=== PATIENT | female | born 1950 | race Caucasian/White ===

== ENCOUNTER 2019-05-12 11:07 | Day surgery (SDC) | payer MEDICARE, OTHER ==
[~2019-05-12] VITALS: Ht 175.3 cm; Wt 85.5 kg
[~2019-05-12 11:07] MED LIST: ASPI81CH PO; ATOR80 PO; ATORVASTATIN CA80 MG PO; Calcium +D & M1 EACH PO; Cyclobenzaprine5 MG PO; LISHYD2012 PO; METF500 PO; Multiple Vitam1 EACH PO; OMEP20ER; SERT100 PO; VITAMIN D34000 UNIT PO
== END 2019-05-12 14:15 | disposition home or self-care (01) ==
LOC: ORSCSDS 11:07
PROVIDERS: Internal Medicine Gastroenterology
PROC: 0DBP8ZX Excision of Rectum, Via Natural or Artificial Opening Endoscopic, Diagnostic (ICD-10-PCS; principal; 2019-05-12 12:30)
PROC: 0DBH8ZX Excision of Cecum, Via Natural or Artificial Opening Endoscopic, Diagnostic (ICD-10-PCS; principal; 2019-05-12 12:30)
DX: Z12.11 Encounter for screening for malignant neoplasm of colon (principal); Z86.010 Personal history of colon polyps; D12.0 Benign neoplasm of cecum; K62.1 Rectal polyp; I10 Essential (primary) hypertension; K64.8 Other hemorrhoids; E78.00 Pure hypercholesterolemia, unspecified; Z80.0 Family history of malignant neoplasm of digestive organs; Z87.891 Personal history of nicotine dependence; Z79.82 Long term (current) use of aspirin; Z79.899 Other long term (current) drug therapy
CPT/HCPCS: 88305; J2704; J7120

== ENCOUNTER → 2023-09-05 | Outpatient (CLI) | payer MEDICARE, OTHER ==
[2023-09-05 12:31] LABS: BASOPHILS ABSOLUTE AUTO 0.05 K/mm3 (0.00-0.23); BASOPHILS PERCENT AUTO 1 % (0-2); EOSINOPHILS ABSOLUTE AUTO 0.08 K/mm3 (0.00-0.68); EOSINOPHILS PERCENT AUTO 1 % (0-6); Hematocrit 42.2 % (33.0-51.0); Hemoglobin 14.5 g/dL (11.5-16.0); IMMATURE GRAN ABSOLUTE AUTO 0.03 K/mm3 (0.00-0.10); IMMATURE GRAN PERCENT AUTO 0 % (0-1); LYMPHOCYTES ABSOLUTE AUTO 3.59 K/mm3 (0.84-5.20); LYMPHOCYTES PERCENT AUTO 40 % (21-46); MONOCYTES ABSOLUTE AUTO 0.64 K/mm3 (0.16-1.47); MONOCYTES PERCENT AUTO 7 % (4-13); Mean Corpuscular HGB 30.1 pg (26.0-34.0); Mean Corpuscular HGB Conc 34.4 g/dL (31.5-36.5); Mean Corpuscular Volume 88 fL (80-100); Mean Platelet Volume 10.7 fL (9.1-12.4); NEUTROPHILS PERCENT AUTO 52 % (41-73); Platelet Count 337 K/mm3 (150-400); RDW Coefficient Variation 12.7 % (11.7-14.2); RDW Standard Deviation 40.3 fL (35.1-46.3); Red Blood Cell Count 4.81 M/mm3 (3.80-5.20); White Blood Cell Count 9.09 K/mm3 (4.00-11.30)
[2023-09-05 12:50] LABS: Bun/Creatinine Ratio 15.6 (12.0-20.0); Creatinine, Blood 1.35 mg/dL (0.40-1.00); Potassium, Blood 3.4 mmol/L (3.5-5.5); Thyroid Stimulating Hormone 1.611 uIU/mL (0.360-4.800)
== END | disposition home or self-care (01) ==
LOC: LAB 12:25 → LAB SHORT 12:25
PROVIDERS: Physician Assistant Surgical
DX: R53.83 Other fatigue (principal); R00.2 Palpitations; R06.00 Dyspnea, unspecified
CPT/HCPCS: 80048; 84443; 84484; 85025; 85379

== ENCOUNTER 2024-05-24 08:25 | Day surgery (SDC) | payer MEDICARE, OTHER ==
[~2024-05-24] VITALS: Ht 175.3 cm; Wt 82.9 kg
[~2024-05-24 08:25] MED LIST changes: +Lactated Ringer's 1,000 ML IV ONE; +Lovastatin20 MG; +METF500; +NEBI10 PO; +SERT100; +propofoL 50 ML IV ONE
[2024-05-24] MEDS ORDERED: Lactated Ringer's 1,000 ML IV ONE (09:15)
[2024-05-24 10:40] VITALS: BP 104/66
== END 2024-05-24 10:43 | disposition home or self-care (01) ==
LOC: ORSCSDS 08:25
PROVIDERS: Internal Medicine Gastroenterology
PROC: 0DBP8ZX Excision of Rectum, Via Natural or Artificial Opening Endoscopic, Diagnostic (ICD-10-PCS; principal; 2024-05-24 09:30)
DX: Z12.11 Encounter for screening for malignant neoplasm of colon (principal); Z86.0100 Personal history of colon polyps, unspecified; Z80.0 Family history of malignant neoplasm of digestive organs; I10 Essential (primary) hypertension; E78.5 Hyperlipidemia, unspecified; K58.9 Irritable bowel syndrome, unspecified; E78.00 Pure hypercholesterolemia, unspecified; K21.9 Gastro-esophageal reflux disease without esophagitis; E11.9 Type 2 diabetes mellitus without complications; Z87.891 Personal history of nicotine dependence; E66.9 Obesity, unspecified; Z68.30 Body mass index [BMI] 30.0-30.9, adult; Z79.82 Long term (current) use of aspirin; Z79.84 Long term (current) use of oral hypoglycemic drugs; Z79.899 Other long term (current) drug therapy
CPT/HCPCS: 82947; 88305; J2704; J7120

== ENCOUNTER 2024-10-28 01:56 | Observation (INO) | payer MEDICARE, OTHER ==
[~2024-10-28] VITALS: Ht 172.7 cm; Wt 85.9 kg
[~2024-10-28 01:56] MED LIST changes: -LISHYD2012 PO; -Lactated Ringer's 1,000 ML IV ONE; -METF500; +ZESTORETIC 20-1 EAC2 PO; -propofoL 50 ML IV ONE
[2024-10-28 02:23] LABS: BASOPHILS ABSOLUTE AUTO 0.06 K/mm3 (0.00-0.23); BASOPHILS PERCENT AUTO 0 % (0-2); EOSINOPHILS ABSOLUTE AUTO 0.19 K/mm3 (0.00-0.68); EOSINOPHILS PERCENT AUTO 1 % (0-6); Hematocrit 42.3 % (33.0-51.0); Hemoglobin 14.5 g/dL (11.5-16.0); IMMATURE GRAN ABSOLUTE AUTO 0.06 K/mm3 (0.00-0.10); IMMATURE GRAN PERCENT AUTO 0 % (0-1); LYMPHOCYTES ABSOLUTE AUTO 4.57 K/mm3 (0.84-5.20); LYMPHOCYTES PERCENT AUTO 27 % (21-46); MONOCYTES ABSOLUTE AUTO 1.45 K/mm3 (0.16-1.47); MONOCYTES PERCENT AUTO 9 % (4-13); Mean Corpuscular HGB 30.2 pg (26.0-34.0); Mean Corpuscular HGB Conc 34.3 g/dL (31.5-36.5); Mean Corpuscular Volume 88 fL (80-100); Mean Platelet Volume 10.4 fL (9.1-12.4); NEUTROPHILS ABSOLUTE AUTO 10.32 K/mm3 (1.96-9.15); NEUTROPHILS PERCENT AUTO 62 % (41-73); Platelet Count 362 K/mm3 (150-400); RDW Coefficient Variation 12.6 % (11.7-14.2); RDW Standard Deviation 41.1 fL (35.1-46.3); White Blood Cell Count 16.65 K/mm3 (4.00-11.30)
[2024-10-28 04:28] LABS: Albumin, Blood 3.9 g/dL (3.4-5.0); Albumin/Globulin Ratio 1.1 (0.8-1.8); Bilirubin, Total 0.9 mg/dL (0.1-1.0); Calcium, Blood 9.6 mg/dL (8.5-10.1); Creatinine, Blood 1.05 mg/dL (0.40-1.00); Globulin, Blood 3.7 g/dL (2.2-4.0); Potassium, Blood 3.6 mmol/L (3.5-5.5); Total Protein, Blood 7.6 g/dL (6.4-8.2)
[2024-10-28] MEDS ORDERED: FentaNYL Citrate 50 MCG/ML 2 ML Injection IV PRN (05:10)
[2024-10-28] MEDS ORDERED: Nitroglycerin 0.4 MG SUBL SL PRN (05:10)
[2024-10-28] MEDS ORDERED: NS 1,000 ML IV SCH (05:10)
[2024-10-28] MEDS ORDERED: FLU VACC TS2024-25(6MOS UP)/PF 45 MCG/0.5 ML SYRINGE IM ONE (05:10)
[2024-10-28] MEDS ORDERED: Ondansetron HCl 2 MG / ML 2ML Vial IV PRN (05:10)
[2024-10-28] MEDS ORDERED: ADALAT CC PO (05:21)
[2024-10-28] MEDS ORDERED: ATORVASTATIN CA20 MG PO (05:22)
[2024-10-28 06:15] VITALS: BP 153/98
[2024-10-28] MEDS ORDERED: FAMO10 PO (06:38)
[2024-10-28 08:20] VITALS: BP 136/91
[2024-10-28] MEDS ORDERED: NIFEdipine 30 MG TabCR PO SCH (09:00)
[2024-10-28] MEDS ORDERED: Enoxaparin 40 MG/0.4 ML SYR SC SCH (09:00)
[2024-10-28] MEDS ORDERED: HydroCHLOROthiazide 25 mg Tab PO SCH (09:00)
[2024-10-28] MEDS ORDERED: Lisinopril 20 MG Tab PO SCH (09:00)
[2024-10-28] MEDS ORDERED: Omeprazole 20 MG CapCR PO SCH (09:00)
--- NOTE | 2024-10-28 15:06 | NUR ---
Pt. is awake in bed and welcomes my visit. Pt. is quite pleasant. Pt. verbalized that she is in the middle of a chemical stress test through the Pt. does not display any affect from the treatment thus far. Consdied matters of [place] and the community. Pt. verbalized that she had served with the [employer]. Prayed with the Pt. at an appropriate time. Pt. verbalized gratitude for the spiritual care visit.
[2024-10-28 16:29] VITALS: BP 126/81
--- NOTE | 2024-10-28 16:51 | NUR ---
PT HAD NO COFFEE OR FOOD TILL RESTING TEST TODAY AND WILL BE NO FOOD PAST MIDNIGHT FOR A MORNING STRESS TEST. PT HAS NO QUESTIONS OR CONCERNS AT THIS TIME.
[2024-10-28 19:25] VITALS: BP 127/92
[2024-10-29 00:04] VITALS: BP 122/78
[2024-10-29 04:11] VITALS: BP 122/82
[2024-10-29 05:21] LABS: BASOPHILS ABSOLUTE AUTO 0.04 K/mm3 (0.00-0.23); BASOPHILS PERCENT AUTO 1 % (0-2); EOSINOPHILS ABSOLUTE AUTO 0.36 K/mm3 (0.00-0.68); EOSINOPHILS PERCENT AUTO 4 % (0-6); Hematocrit 39.9 % (33.0-51.0); Hemoglobin 13.6 g/dL (11.5-16.0); IMMATURE GRAN ABSOLUTE AUTO 0.01 K/mm3 (0.00-0.10); IMMATURE GRAN PERCENT AUTO 0 % (0-1); LYMPHOCYTES ABSOLUTE AUTO 3.36 K/mm3 (0.84-5.20); LYMPHOCYTES PERCENT AUTO 41 % (21-46); MONOCYTES ABSOLUTE AUTO 0.88 K/mm3 (0.16-1.47); MONOCYTES PERCENT AUTO 11 % (4-13); Mean Corpuscular HGB 30.1 pg (26.0-34.0); Mean Corpuscular HGB Conc 34.1 g/dL (31.5-36.5); Mean Corpuscular Volume 88 fL (80-100); Mean Platelet Volume 10.6 fL (9.1-12.4); NEUTROPHILS ABSOLUTE AUTO 3.61 K/mm3 (1.96-9.15); NEUTROPHILS PERCENT AUTO 44 % (41-73); Platelet Count 317 K/mm3 (150-400); RDW Coefficient Variation 12.9 % (11.7-14.2); RDW Standard Deviation 41.8 fL (35.1-46.3); Red Blood Cell Count 4.52 M/mm3 (3.80-5.20); White Blood Cell Count 8.26 K/mm3 (4.00-11.30)
[2024-10-29 05:42] LABS: Albumin, Blood 3.4 g/dL (3.4-5.0); Bilirubin, Total 0.8 mg/dL (0.1-1.0); Bun/Creatinine Ratio 22.5 (12.0-20.0); Calcium, Blood 9.2 mg/dL (8.5-10.1); Creatinine, Blood 0.93 mg/dL (0.40-1.00); Globulin, Blood 3.4 g/dL (2.2-4.0); Potassium, Blood 3.7 mmol/L (3.5-5.5); Total Protein, Blood 6.8 g/dL (6.4-8.2)
[2024-10-29] MEDS ORDERED: Regadenoson 0.4 MG/5 ML SYRINGE ONE (07:14)
[2024-10-29] MEDS ORDERED: Caffeine Citrated 60 MG/3 ML Vial ONE (07:14)
[2024-10-29 08:14] VITALS: BP 142/84
[2024-10-29 12:02] VITALS: BP 106/70
[2024-10-29] MEDS ORDERED: ADALAT CC30 M1 PO (12:40)
--- NOTE | 2024-10-29 13:50 | NUR ---
DC SUMMARY PT DC HOME THIS SHIFT. DC INSTRUCTION GONE OVER WITH PT WHOM STATED UNDERSTANDING. PT DECLINED TO HAVE STAFF TAKE OUT BUT WAS WALKED TO ELEVATOR BY THIS NURSE AND STEADY GAIT WAS OBSERVED.
== END 2024-10-29 13:33 | disposition home or self-care (01) ==
LOC: ER 01:56 → MEDS 01:57
PROVIDERS: Emergency Medicine; ADMIT Internal Medicine
DX: R07.89 Other chest pain (principal); I10 Essential (primary) hypertension; E78.5 Hyperlipidemia, unspecified; K21.9 Gastro-esophageal reflux disease without esophagitis; E11.9 Type 2 diabetes mellitus without complications; Z87.891 Personal history of nicotine dependence; Z88.8 Allergy status to other drugs, medicaments and biological substances; Z79.82 Long term (current) use of aspirin; Z79.84 Long term (current) use of oral hypoglycemic drugs; Z79.899 Other long term (current) drug therapy
CPT/HCPCS: 36415; 71046; 78452; 80053; 83690; 83880; 84484; 85025; 85379; 93005; 93010; 93017; 96372; 99285-25; A9270; A9500; G0378; J0706; J1650; J2785; J7030

== ENCOUNTER → 2025-07-18 | Outpatient (CLI) | payer MEDICARE, OTHER ==
[~2025-07-18] MED LIST changes: +ADALAT CC PO; +ADALAT CC30 M1 PO; +ATORVASTATIN CA20 MG PO; +FAMO10 PO
[2025-07-21 18:03] LABS: ALBUMIN %,URINE 100.0 %; ALPHA-1 %,URINE 0.0 %; ALPHA-2 %,URINE 0.0 %; BETA GLOBULIN %,URINE 0.0 %; GAMMA GLOBULIN %,URINE 0.0 %; HOURS COLLECTED 24 hr; PARAPROTEIN %,URINE 0.0 %; PARAPROTEIN EXCRETION/24 HOUR 0.0
== END ==
LOC: LAB 06:30 → LAB SHORT 06:30
PROVIDERS: Family Medicine
DX: G62.89 Other specified polyneuropathies (principal)
CPT/HCPCS: 81050; 84156; 84166; 86335